=== PATIENT | female | born 1965 | race Caucasian/White ===

== ENCOUNTER 2019-12-03 16:37 | Emergency (ER) | payer OTHER ==
[~2019-12-03] VITALS: Ht 162.6 cm; Wt 93.0 kg
[~2019-12-03 16:37] MED LIST: ZANTAC150 M1 PO
== END 2019-12-03 20:48 | disposition home or self-care (01) ==
LOC: ER 16:37
DX: M62.838 Other muscle spasm (principal); J11.1 Influenza due to unidentified influenza virus with other respiratory manifestations

== ENCOUNTER 2021-11-18 12:51 | Emergency (ER) | payer OTHER ==
[~2021-11-18] VITALS: Ht 162.6 cm; Wt 88.5 kg
[2021-11-18] MEDS ORDERED: CALCIUM 500 +1 EAC2 PO (13:23)
== END 2021-11-18 22:00 | disposition home or self-care (01) ==
LOC: ER 12:51
DX: B34.9 Viral infection, unspecified (principal); R68.89 Other general symptoms and signs; Z20.822 Contact with and (suspected) exposure to COVID-19

== ENCOUNTER 2023-03-15 08:29 | Emergency (ER) | payer OTHER ==
[~2023-03-15] VITALS: Ht 162.6 cm; Wt 88.5 kg
[~2023-03-15 08:29] MED LIST changes: +CALCIUM 500 +1 EAC2 PO
== END 2023-03-15 12:53 | disposition home or self-care (01) ==
LOC: ER 08:29
DX: M54.9 Dorsalgia, unspecified (principal); R35.0 Frequency of micturition